=== PATIENT | male | born 1965 | race Two or more races ===

== ENCOUNTER 2018-03-16 12:00 | Emergency (ER) | payer BC ==
[2018-03-16 12:45] LABS: BASO % 0.3 % (0.0-2.0); EOS # 0.5 K/uL (0.0-0.7); EOS % 10.1 % (0.0-4.0); HEMOGLOBIN 11.9 g/dL (12.0-18.0); LYMPH # 1.8 K/uL (1.0-4.3); LYMPH % 38.9 % (20.0-40.0); MEAN CELL VOLUME 76.9 fL (80.0-94.0); MEAN CORPUSCULAR HEMOGLOBIN 24.9 pg (27.0-31.0); MEAN CORPUSCULAR HGB CONC 32.4 g/dL (33.0-37.0); MEAN PLATELET VOLUME 9.7 fL (7.2-11.7); MONO # 0.5 K/uL (0.0-0.8); MONO % 10.4 % (0.0-10.0); NEUT # 1.8 K/uL (1.8-7.0); NEUT % 40.3 % (50.0-75.0); NRBC % 0.1 % (0.0-2.0); RBC 4.78 Mil/uL (4.40-5.90); RED CELL DISTRIBUTION WIDTH 17.2 % (11.5-14.5); WHITE BLOOD COUNT 4.6 K/uL (4.8-10.8)
[2018-03-16] MEDS ORDERED: Sodium Chloride 0.9% 1,000 ML IV ONE (12:54)
[2018-03-16 13:02] LABS: ALB/GLOB RATIO 1.2 (1.0-2.1); ALT/SGPT 24 U/L (21-72); AST/SGOT 28 U/L (17-59); BLOOD UREA NITROGEN 14 mg/dL (9-20); CALCIUM 9.6 mg/dl (8.6-10.4); GFR AFRICAN-AMERICAN > 60; GFR NON-AFRICAN AMERICAN > 60
--- NOTE | 2018-03-16 13:11 | C.PDOC ---
History Of Present Illness 52-year-old male, presents to the emergency department s/p syncopal episode. Patient states he was working in his garden this morning and felt light headed, which was followed by a syncopal episode witnessed by . Patient returned to baseline consciousness and reports his brought him to hospital. In ED, patient states he feels "normal." He attributes his symptoms to not eating any food this morning and feeling dehydrated. Denies headache, nausea/vomiting, chest pain, neck pain, head injury, or any other associated symptoms. No other complaints at this time. PMD Temo Leal MD. Time Seen by Provider: 03/16/18 12:40 Chief Complaint (Nursing): Syncope History Per: Patient History/Exam Limitations: no limitations Current Symptoms Are (Timing): Still Present Past Medical History Reviewed: Historical Data, Nursing Documentation, Vital Signs Vital Signs: Last Vital Signs Temp 97.9 F 03/16/18 17:48 Pulse 71 03/16/18 17:48 Resp 18 03/16/18 17:48 BP 143/86 03/16/18 17:48 Pulse Ox 97 03/16/18 17:55 - Medical History PMH: HTN Family History: States: No Known Family Hx - Social History Hx Tobacco Use: No Hx Alcohol Use: No Hx Substance Use: No - Immunization History Hx Tetanus Toxoid Vaccination: No Hx Influenza Vaccination: No Hx Pneumococcal Vaccination: No Review Of Systems Constitutional: Negative for: Fever Cardiovascular: Positive for: Light Headedness ((+)syncope). Negative for: Chest Pain, Palpitations Respiratory: Negative for: Shortness of Breath Gastrointestinal: Negative for: Nausea, Vomiting Musculoskeletal: Negative for: Neck Pain, Back Pain Neurological: Negative for: Weakness, Numbness, Headache, Dizziness Physical Exam - Physical Exam Appears: Non-toxic, No Acute Distress Skin: Normal Color, Warm, Dry, No Diaphoretic, No Pale, No Rash Head: Atraumatic, Normacephalic Eye(s): bilateral: Normal Inspection, PERRL, EOMI Nose: Normal Oral Mucosa: Moist Lips: Normal Appearing Neck: Normal ROM Cardiovascular: Rhythm Regular, No Murmur Respiratory: Normal Breath Sounds, No Accessory Muscle Use Gastrointestinal/Abdominal: Soft, No Tenderness Extremity: Normal ROM, No Deformity, No Swelling Neurological/Psych: Oriented x3, Normal Speech ED Course And Treatment - Laboratory Results Result Diagrams: 03/16/18 12:41 03/16/18 12:41 ECG Rhythm: Sinus Rhythm Rate From EC O2 Sat by Pulse Oximetry: 97 (RA) Pulse Ox Interpretation: Normal - Other Rad cxr X-Ray: Viewed By Me, Read By Radiologist Interpretation: Accession No. : [id number]. Patient Name / ID : GUSTAVO SANCHEZ / [id number]. Exam Date : 03/16/2018 12:59:49 ( Approved ). Study Comment : Sex / Age : M / 52Y. Creator : Rodney Martin MD. Dictator : Rodney Martin MD. Senior Sql Server Database Developer : Bottom Cementer : Rodney Martin MD. Approver2 : Report Date : 03/16/2018 13:39:14. My Comment : . Chest x- ray single frontal view. History: Syncope. Comparison: None available. Findings: Mild venous congestion. Tortuous aorta. Heart size within normal limits. Degenerative changes in spine. Impression: Mild venous congestion. Tortuous aorta. Heart size within normal limits. - CT Scan/US CT HEAD Other Rad Studies (CT/US): Read By Radiologist, Radiology Report Reviewed CT/US Interpretation: Accession No. : [id number]. Patient Name / ID : GUSTAVO SANCHEZ / [id number]. Exam Date : 03/16/2018 13:29:20 ( Approved ). Study Comment : Sex / Age : M / 52Y. Creator : Rodney Martin MD. Dictator : Rodney Martin MD. Senior Sql Server Database Developer : Bottom Cementer : Rodney Martin MD. Approver2 : Report Date : 03/16/2018 13:57:54. My Comment : . PROCEDURE: CT HEAD WITHOUT CONTRAST. HISTORY: SYNCOPE. COMPARISON: None available. TECHNIQUE: Axial computed tomography images were obtained through the head/brain without intravenous contrast. Radiation dose: Total exam DLP = 889 mGy-cm. This CT exam was performed using one or more of the following dose reduction techniques: Automated exposure control, adjustment of the mA and/or kV according to patient size, and/or use of iterative reconstruction technique. FINDINGS: HEMORRHAGE: No intracranial hemorrhage. BRAIN: No mass effect or edema. Scattered focal lucencies in the subcortical and periventricular white matter suggestive for chronic microvascular ischemic change. VENTRICLES: Unremarkable. No hydrocephalus. CALVARIUM: Unremarkable. PARANASAL SINUSES : Mucosal retention cyst and or polyp in the right maxillary sinus. Prominent mucosal thickening of the bilateral maxillary sinuses, sphenoid sinus, and ethmoid air cells. MASTOID AIR CELLS: Unremarkable as visualized. No inflammatory changes. OTHER FINDINGS: None. IMPRESSION: No acute intracranial abnormality. Chronic microvascular ischemic changes. Sinus mucosal disease. If symptoms persist, consider correlation with MRI. Progress Note: Patient sts he spoke to his siter who is physician and now he just wants 2 sets of cardic enzymes and after that he will sign AMA. Patient sts sh efeels better and he believes his symptoms are due to dehydration. On re -evaluation patient feels better, asymptomatic. 2 sets of cardic enzymes are negative. Patient signed AMA, all questions answered. Medical Decision Making Medical Decision Making: Impression: Syncope Plan: * CT Head * EKG * Bloodwork * Chest X-Ray * IVFs * Reassess and Disposition Disposition - Disposition Referrals: Temo Leal MD [Medical Doctor] - Disposition: AGAINST MEDICAL ADVICE Disposition Time: 17:53 Condition: STABLE Additional Instructions: Follow up with your PMD within 1-2 days. REturn to ED if feel worse. Instructions: Syncope (Fainting) (DC), Leaving Against Medical Advice Forms: [email or web address] (U[place]) - Clinical Impression Clinical Impression: Syncope - Scribe Statement The provider has reviewed the documentation as recorded by the Scribe (Enrique Love) All medical record entries made by the Scribe were at my direction and personally dictated by me. I have reviewed the chart and agree that the record accurately reflects my personal performance of the history, physical exam, medical decision making, and the department course for this patient. I have also personally directed, reviewed, and agree with the discharge instructions and disposition.
[2018-03-16 13:12] LABS: B-TYPE NATRIURETIC PEPTIDE 61.9 pg/mL (0-900)
[2018-03-16 13:36] LABS: CK-MB 0.25 ng/mL (0.0-3.38)
--- NOTE | 2018-03-16 13:40 | RAD ---
Chest x-ray single frontal view History: Syncope. Comparison: None available. Findings: Mild venous congestion. Tortuous aorta. Heart size within normal limits. Degenerative changes in spine. Impression: Mild venous congestion. Tortuous aorta. Heart size within normal limits.
--- NOTE | 2018-03-16 13:59 | CT ---
PROCEDURE: CT HEAD WITHOUT CONTRAST. HISTORY: SYNCOPE COMPARISON: None available. TECHNIQUE: Axial computed tomography images were obtained through the head/brain without intravenous contrast. Radiation dose: Total exam DLP = 889 mGy-cm. This CT exam was performed using one or more of the following dose reduction techniques: Automated exposure control, adjustment of the mA and/or kV according to patient size, and/or use of iterative reconstruction technique. FINDINGS: HEMORRHAGE: No intracranial hemorrhage. BRAIN: No mass effect or edema. Scattered focal lucencies in the subcortical and periventricular white matter suggestive for chronic microvascular ischemic change. VENTRICLES: Unremarkable. No hydrocephalus. CALVARIUM: Unremarkable. PARANASAL SINUSES: Mucosal retention cyst and or polyp in the right maxillary sinus. Prominent mucosal thickening of the bilateral maxillary sinuses, sphenoid sinus, and ethmoid air cells. MASTOID AIR CELLS: Unremarkable as visualized. No inflammatory changes. OTHER FINDINGS: None. IMPRESSION: No acute intracranial abnormality. Chronic microvascular ischemic changes. Sinus mucosal disease. If symptoms persist, consider correlation with MRI.
[2018-03-16 14:13] VITALS: RESP 18
[2018-03-16] MEDS ORDERED: Sodium Chloride 0.9% 1,000 ML IV STA (15:05)
[2018-03-16 17:49] VITALS: BP 143/86; PULSE 71; TEMP 97.9
[2018-03-16 17:56] VITALS: O2SAT 97
--- NOTE | 2018-03-19 13:43 | CARD ---
APPROVED REPORT EKG Measurement Heart [id number] <Conclusion> Normal sinus rhythm Normal ECG
== END 2018-03-16 17:59 | disposition left against medical advice (07) ==
LOC: C.ER 12:00
DX: R55 Syncope and collapse (principal); I10 Essential (primary) hypertension
CPT/HCPCS: 70450; 71045; 80053; 82550; 82553; 82948; 83880; 84484; 85025; 96360; 96361; 99285; J7030